=== PATIENT | female | born 1985 | race Hispanic/Latino ===

== ENCOUNTER → 2019-02-01 10:51 | Outpatient (CLI) | payer OTHER, SELFPAY ==
--- NOTE | 2019-02-01 | DI.MRI.S_ITS ---
PROCEDURE: MR HAND RT WO/W CON INDICATIONS: Localized swelling, mass and lump, right TECHNIQUE: Noncontrast coronal T1 spin echo and T2 fast spin echo with fat saturation, axial proton density fast spin echo and T2 fast spin echo with fat saturation, axial T1 spin echo with fat saturation, sagittal T1 spin echo and STIR through the hand and fingers. Post-contrast axial, coronal, and sagittal T1 spin echo through the hand and fingers. COMPARISON: None. FINDINGS: Image quality: Diagnostic. Bones: No acute fracture, dislocation, or suspicious osseous lesion is identified involving the osseous structures of the imaged right hand. There mild degenerative changes noted involving the joints of the thumb. No suspicious osseous enhancement is evident. No significant joint effusions are appreciated. Soft tissues: There is an ovoid lesion that demonstrates increased signal intensity on the fluid sensitive sequences and intermediate signal on the T1 images. This structure appears to be located within the 1st dorsal interosseous muscle between the 1st and 2nd metacarpals along the radial 2nd metacarpal head. There is questionable proximal tapering of this lesion potentially along the course of a vascular structure. Postcontrast images demonstrate fairly avid enhancement. No additional similar appearing lesions are evident. Otherwise, the soft tissues of the hand are within normal limits. IMPRESSION: The patient's palpable abnormality correlates with an avidly enhancing lesion along the radial aspect of the 2nd metacarpal, which is probably centered within the 1st dorsal interosseous muscle and is suspicious for either a sarcomatous lesion or potentially a peripheral nerve sheath tumor. Percutaneous biopsy is recommended for diagnosis. Dictated by: Glen Santos M.D. on 02/01/2019 at 11:44 Approved by: Glen Santos M.D. on 02/01/2019 at 12:01
== END ==
PROVIDERS: Visit Provider Orthopaedic Surgery
DX: R22.31 Localized swelling, mass and lump, right upper limb (principal)
CPT/HCPCS: 73220; A9579